=== PATIENT | female | born 1950 | race Caucasian/White ===

== ENCOUNTER 2017-08-14 15:17 | Emergency (ER) | payer OTHER ==
[~2017-08-14] VITALS: Ht 167.6 cm; Wt 68.0 kg
[2017-08-14 16:17] LABS: BASOPHILS ABSOLUTE AUTO 0.04 K/mm3 (0.00-0.23); BASOPHILS PERCENT AUTO 1 % (0-2); EOSINOPHILS ABSOLUTE AUTO 0.39 K/mm3 (0.00-0.68); EOSINOPHILS PERCENT AUTO 6 % (0-6); Hematocrit 37.3 % (33.0-51.0); Hemoglobin 12.3 g/dL (11.5-16.0); IMMATURE GRAN ABSOLUTE AUTO 0.01 K/mm3 (0.00-0.10); IMMATURE GRAN PERCENT AUTO 0 % (0-1); LYMPHOCYTES ABSOLUTE AUTO 1.26 K/mm3 (0.84-5.20); LYMPHOCYTES PERCENT AUTO 21 % (21-46); MONOCYTES ABSOLUTE AUTO 0.44 K/mm3 (0.16-1.47); MONOCYTES PERCENT AUTO 7 % (4-13); Mean Corpuscular HGB 31.1 pg (26.0-34.0); Mean Corpuscular Volume 94 fL (80-100); Mean Platelet Volume 8.9 fL (9.1-12.4); NEUTROPHILS ABSOLUTE AUTO 3.96 K/mm3 (1.96-9.15); NEUTROPHILS PERCENT AUTO 65 % (41-73); Platelet Count 250 K/mm3 (150-400); RDW Standard Deviation 44.7 fL (35.1-46.3); Red Blood Cell Count 3.95 M/mm3 (3.80-5.20)
[2017-08-14 16:21] LABS: Source, Urine Catheter
[2017-08-14 16:25] LABS: Appearance, Urine Hazy (Clear); Bilirubin, Urine Neg (Neg); Blood, Urine Neg (Neg); Color, Urine Yellow (P-Yellow); Glucose Qualitative, Urine Neg (Neg); Ketones, Urine Neg (Neg); Leukocyte Esterase, Urine Neg (Neg); Nitrite, Urine Neg (Neg); Protein, Urine Neg (Neg); Specific Gravity, Urine 1.015 (1.003-1.022); Urobilinogen, Urine NORM (Normal)
[2017-08-14 16:32] LABS: International Normalized Ratio 1.07; Prothrombin Time Results 11.1 Sec (9.7-11.5)
[2017-08-14 16:34] LABS: Amorphous Light (0-Heavy); Squamous Epithelial Cells Few /hpf (Few); Transitional Epithelial Cells Few /hpf (0-Rare)
[2017-08-14 16:35] LABS: Bacteria Not Seen /hpf; Red Blood Cells, Urine 0-2 /hpf (0-2); White Blood Cells, Urine 0-2 /hpf (0-5)
[2017-08-14 16:38] LABS: Alanine Aminotransfer (ALT/SGP 16 U/L (12-78); Albumin, Blood 3.3 g/dL (3.4-5.0); Albumin/Globulin Ratio 1.1 (0.8-1.8); Alk Phos 118 U/L (50-136); Anion Gap 4 mmol/L (6-16); Aspartate Aminotrans (AST/SGOT 14 U/L (12-37); Bilirubin, Total 0.5 mg/dL (0.1-1.0); Blood Urea Nitrogen 11 mg/dL (8-24); CO2, Blood 31 mmol/L (21-32); Calcium, Blood 9.2 mg/dL (8.5-10.1); Chloride, Blood 108 mmol/L (98-108); Creatinine, Blood 0.79 mg/dL (0.40-1.00); Glomerular Filtration Rate >60 (60-); Glucose, Blood 95 mg/dL (70-99); Potassium, Blood 3.9 mmol/L (3.5-5.5); Sodium, Blood 143 mmol/L (136-145); Total Protein, Blood 6.3 g/dL (6.4-8.2)
[2017-08-14] MEDS ORDERED: ESCI10 PO (17:12)
[2017-08-14] MEDS ORDERED: Methimazole5 MG PO (17:12)
== END 2017-08-14 18:30 | disposition short-term general hospital (02) ==
LOC: ER 15:17
PROVIDERS: Physician Assistant
DX: S06.5X9A Traumatic subdural hemorrhage with loss of consciousness of unspecified duration, initial encounter (principal); F03.90 Unspecified dementia, unspecified severity, without behavioral disturbance, psychotic disturbance, mood disturbance, and anxiety; Z79.899 Other long term (current) drug therapy; W18.2XXA Fall in (into) shower or empty bathtub, initial encounter
CPT/HCPCS: 36415; 70450; 80053; 81001; 82947; 85025; 85610; 93005; 93010; 99285

== ENCOUNTER 2018-08-14 09:54 | Inpatient (IN) | payer OTHER ==
[~2018-08-14] VITALS: Ht 170.2 cm; Wt 72.7 kg
[~2018-08-14 09:54] MED LIST: ESCI10 PO; Methimazole5 MG PO
[2018-08-14 10:12] LABS: Hematocrit 41.9 % (33.0-51.0); Hemoglobin 13.1 g/dL (11.5-16.0); Mean Corpuscular HGB 31.3 pg (26.0-34.0); Mean Corpuscular HGB Conc 31.3 g/dL (31.5-36.5); Mean Corpuscular Volume 100 fL (80-100); Mean Platelet Volume 9.3 fL (9.1-12.4); NRBC ABSOLUTE 0.04 K/mm3 (0.00-0.02); NRBC Auto 0.5 /100 WBC (0.0-0.2); Platelet Count 159 K/mm3 (150-400); RDW Coefficient Variation 13.2 % (11.7-14.2); RDW Standard Deviation 48.4 fL (35.1-46.3); Red Blood Cell Count 4.18 M/mm3 (3.80-5.20); White Blood Cell Count 8.59 K/mm3 (4.00-11.30)
[2018-08-14 10:40] LABS: Alanine Aminotransfer (ALT/SGP 765 U/L (12-78); Albumin, Blood 2.9 g/dL (3.4-5.0); Albumin/Globulin Ratio 0.9 (0.8-1.8); Alk Phos 143 U/L (50-136); Anion Gap 15 mmol/L (6-16); Bilirubin, Total 0.4 mg/dL (0.1-1.0); Blood Urea Nitrogen 10 mg/dL (8-24); Bun/Creatinine Ratio 10.5 (12.0-20.0); CO2, Blood 21 mmol/L (21-32); Calcium, Blood 8.9 mg/dL (8.5-10.1); Chloride, Blood 107 mmol/L (98-108); Creatinine, Blood 0.95 mg/dL (0.40-1.00); Globulin, Blood 3.1 g/dL (2.2-4.0); Glomerular Filtration Rate >60 (60-); Glucose, Blood 284 mg/dL (70-99); Potassium, Blood 3.6 mmol/L (3.5-5.5); Sodium, Blood 143 mmol/L (136-145); Troponin I 0.306 ng/mL (0.000-0.040)
[2018-08-14 10:48] LABS: BASOPHILS PERCENT MAN 0 % (0-2); EOSINOPHILS ABSOLUTE MAN 0.08 K/mm3 (0.00-0.68); EOSINOPHILS PERCENT MAN 1 % (0-6); LYMPHOCYTES ABSOLUTE MAN 5.06 K/mm3 (0.84-5.20); LYMPHOCYTES PERCENT MAN 59 % (21-46); METAMYELOCYTE ABSOLUTE MAN 0.17 K/mm3 (0.00-0.00); METAMYELOCYTE PERCENT MAN 2 % (0-0); MONOCYTES ABSOLUTE MAN 0.25 K/mm3 (0.16-1.47); MONOCYTES PERCENT MAN 3 % (4-13); MYELOCYTE ABSOLUTE MAN 0.17 K/mm3 (0.00-0.00); MYELOCYTE PERCENT MAN 2 % (0-0); NEUTROPHILS ABSOLUTE MAN 2.83 K/mm3 (1.96-9.15); SEG NEUTROPHILS PERCENT MAN 33 % (41-73); TOTAL CELLS COUNTED 100
[2018-08-14 10:54] LABS: Base Excess Venous -9.3 mmol/L; Bicarbonate Venous 16.1 mmol/L (24.0-30.0); PCO2 Venous 65.4 mmHg (38-42); PO2 Venous 48.2 mmHg (38-42)
[2018-08-14 11:01] LABS: Aspartate Aminotrans (AST/SGOT 800 U/L (12-37)
[2018-08-14 11:07] LABS: Source, Urine Catheter
[2018-08-14 11:10] LABS: Bilirubin, Urine Neg (Neg); Blood, Urine 5+ (Neg); Glucose Qualitative, Urine 4+ (Neg); Ketones, Urine 1+ (Neg); Leukocyte Esterase, Urine Neg (Neg); Nitrite, Urine Neg (Neg); Protein, Urine 4+ (Neg); Specific Gravity, Urine 1.015 (1.003-1.022); Urobilinogen, Urine NORM (Normal); pH, Urine 6.5 (5.0-8.0)
[2018-08-14 11:30] LABS: Color, Urine Yellow (P-Yellow)
[2018-08-14 11:31] LABS: Appearance, Urine Hazy (Clear)
[2018-08-14 11:33] LABS: Red Blood Cells, Urine 25-50 /hpf (0-2)
[2018-08-14 11:34] LABS: Squamous Epithelial Cells Few /hpf (Few)
[2018-08-14 11:35] LABS: Amorphous Mod (0-Heavy); Bacteria Few /hpf; Transitional Epithelial Cells Few /hpf (0-Rare)
[2018-08-14 11:36] LABS: Granular Casts 0-2 /lpf (0)
[2018-08-14 16:05] LABS: PCO2 Arterial 39.6 mmHg (35-45); PO2 Arterial 75.4 mmHg (80-100); pH Blood Arterial 7.38 (7.35-7.45)
--- NOTE | 2018-08-14 16:22 | NUR ---
1350 PT WAS ADMITTED TO ICU-7 WITH TRAFFIC AND TRANSPORT PLANNER ON SANDRITA. PT IS NONVERBAL AND FOLLOWING NO COMMANDS AT PRESENT. PT HAS A GLAZED LOOK AND STARE AT ANY VISITORS STAFF. PT IS NOT PICKING AT THINK AND BED ALARM IS ON. ADDRESSING CODE STATUS WILL INFORM DR CHAHAL. PT SKIN CLEAR AND INCONT. UPON ARRIVAL TO ICU.
--- NOTE | 2018-08-14 18:09 | NUR ---
8200 AND 1540 AFSANEH GUADARRAMA AND MARCO ANTONIO CALLED AND CONSULTED RE PT CONSULT. PT VS IMPROVING.
--- NOTE | 2018-08-14 18:31 | NUR ---
PT NEURO STATUS STABLE, VS STABLE AND IMPROVING. PT REMAINS NONVERBAL. IN ROOM. PT HAS BEEN TO CT AT 1635 PER ORDER. HEPARIN GTT TO START AT 13UNITS PER PHARMACY AND HOLD BOLUS UNTIL AFTER CT HEAD TONIGHT AT [address] GUADARRAMA. I/O NOTED. NS AT 100ML AND IV ABX INFUSING AND HEPARIN GTT TO START NOW.
--- NOTE | 2018-08-14 23:39 | NUR ---
ASSUMING CARE RECEIVED PT REPORT FROM RADHA ROGER. PT HAS DEMENTIA AND IS NON-VERBAL AT BASELINE. PT IS AWAKE AND TRACKING MOVEMENTS WITH EYES. PT IS NOT FOLLOWING COMMANDS AT THIS TIME. PT IS RECEIVING NS AT 100ML/HR AND HEPARIN AT 13U/KG/HR. RATE CONFIRMED WITH OFF GOING NURSE AT THE TIME OF REPORT. PT HAS MCKEON TEMP PROBE IN PLACE AT THIS TIME, PATENT AND DRAINING TO GRAVITY. PT HR IS IN THE 100-110 RANGE AT THIS TIME. PT BP IS STABLE IN THE 120-130'S. PT LUNG SOUNDS ARE DIMINISHED THROUGHOUT. PT IS ON 6L O2 VIA NC AT THIS TIME. SPO2 IS IN THE MID 90'S. PT TAKEN TO CT FOR CT OF HEAD AT APPROX 2215 AND RETURNED AT APPROX 2230. PT ESCORTED TO CT BY THIS RN AND FOREST EXAMINER, VIA ICU BED. ASSUMING CARE OF PT AT THE TIME OF SHIFT REPORT. WILL CONTINUE TO MONITOR PT.
[2018-08-15 05:21] LABS: BASOPHILS ABSOLUTE AUTO 0.01 K/mm3 (0.00-0.23); BASOPHILS PERCENT AUTO 0 % (0-2); EOSINOPHILS ABSOLUTE AUTO 0.02 K/mm3 (0.00-0.68); EOSINOPHILS PERCENT AUTO 0 % (0-6); Hematocrit 34.4 % (33.0-51.0); Hemoglobin 11.4 g/dL (11.5-16.0); IMMATURE GRAN ABSOLUTE AUTO 0.04 K/mm3 (0.00-0.10); IMMATURE GRAN PERCENT AUTO 0 % (0-1); LYMPHOCYTES PERCENT AUTO 11 % (21-46); MONOCYTES ABSOLUTE AUTO 0.73 K/mm3 (0.16-1.47); MONOCYTES PERCENT AUTO 7 % (4-13); Mean Corpuscular HGB 31.7 pg (26.0-34.0); Mean Corpuscular HGB Conc 33.1 g/dL (31.5-36.5); Mean Platelet Volume 9.4 fL (9.1-12.4); NEUTROPHILS ABSOLUTE AUTO 8.12 K/mm3 (1.96-9.15); NEUTROPHILS PERCENT AUTO 81 % (41-73); Platelet Count 130 K/mm3 (150-400); RDW Coefficient Variation 13.3 % (11.7-14.2); RDW Standard Deviation 46.7 fL (35.1-46.3); White Blood Cell Count 10.02 K/mm3 (4.00-11.30)
[2018-08-15 05:22] LABS: Mean Corpuscular Volume 96 fL (80-100)
[2018-08-15 05:47] LABS: Alanine Aminotransfer (ALT/SGP 567 U/L (12-78); Albumin, Blood 2.6 g/dL (3.4-5.0); Alk Phos 117 U/L (50-136); Anion Gap 3 mmol/L (6-16); Aspartate Aminotrans (AST/SGOT 340 U/L (12-37); Bilirubin, Total 0.6 mg/dL (0.1-1.0); Blood Urea Nitrogen 11 mg/dL (8-24); Bun/Creatinine Ratio 15.8 (12.0-20.0); CO2, Blood 29 mmol/L (21-32); Calcium, Blood 8.3 mg/dL (8.5-10.1); Chloride, Blood 115 mmol/L (98-108); Globulin, Blood 2.6 g/dL (2.2-4.0); Glomerular Filtration Rate >60 (60-); Glucose, Blood 119 mg/dL (70-99); Potassium, Blood 4.3 mmol/L (3.5-5.5); Sodium, Blood 147 mmol/L (136-145); Total Protein, Blood 5.2 g/dL (6.4-8.2)
--- NOTE | 2018-08-15 05:58 | NUR ---
SHIFT SUMAMRY NOTE PT HAS REMAINED AWAKE THROUGH MOST OF THE NIGHT. PT HAS NOT FOLLOWED ANY COMMANDS THROUGH THE NIGHT, BUT IS ABLE TO TRACK MOVEMENTS WITH EYES WELL. PT PUPILS HAVE REMAINED EQUAL ROUND AND REACTIVE THROUGHOUT THE NIGHT. PT CONTINUES TO RECEIVE NS AT 100ML/HR AND HEPARIN AT 13U/KG/HR. HEPARIN RATE HAS REMAINED UNCHANGED THROUGHOUT THE NIGHT. PT REMAINS ON 6L O2 VIA NC AT THIS TIME WITH SPO2 IN THE MID TO HIGH 90'S PT MCKEON TEMP PROBE REMAINS IN PLACE, AND IS PATENT AND DRAINING CLEAR YELLOW URINE AT THIS TIME. PT TEMPERATURE HAS MAINTAINED IN THE LOW 99 RANGE THROUGH THE NIGHT. PT HR HAS REMAINED IN THE LOW 100'S WHILE AWAKE, BUT WILL DECREASE TO THE 90'S WHILE ASLEEP. PT BP HAS MAINTAINED THROUGH THE NIGHT. WILL REPORT OFF TO ONCOMING DAY SHIFT NURSE.
[2018-08-15 06:04] LABS: Troponin I 0.727 ng/mL (0.000-0.040)
--- NOTE | 2018-08-15 09:15 | NUR ---
PT HAS HAD ECHOCARD DONE THIS AM. IN TO VISIT THIS DAY. PT REMIANS NON-VERBAL AND CONT TO HAVE A BLANK STARE W/O ANY INDICATIONS OF FOLLOWING COMMMANDS. PT REMAINS NON-COMBATIVE AND NOT REALLY RESISTING WITH CARE EITHER. PT IS ALSO FEEDING PT AND SHE IS TOLERATING WELL. INDICATED THAT SHE WILL NOT SWALLOW WELL WITH DENTURES IN, BUT DENTURES ARE AT HOME.
--- NOTE | 2018-08-15 10:33 | NUR ---
HEPARIN GTT D/C AND LOVENOX SQ STARTED. REMAINS IN ROOM. VSS. PT REMAINS WAKE WITH NO CLINICAL CHANGE IN STATUS.
--- NOTE | 2018-08-15 16:08 | NUR ---
REPORT CALLED TO SONAM CASPER AND WILL TRANSPORT TO PCU-2 [facility] VIA BED. IS IN ROOM AND AWARE OF PT CURRENT HEALTH STATUS AND CHANGE OF ROOMS. I/O CHARTED.
--- NOTE | 2018-08-15 17:52 | NUR ---
Assumed care of pt at approx 1630 from RADHA Lin. pt transfered to pcu 2 and greeted by pcu weigh and charge worker, jody. vss. pt in no apparent sign of distress at time of transfer. upon assessment, lungs diminished throughout, crackles LEIA. neuro is baseline per pt . pt nonverbal, follows simple commands and has nodded "yes" and "no". pt with strong real estate developer, weak motor function in both upper and lower extremities. pt presents positive for DVT in left leg. upon assessment, LL warm to the touch, not swollen. pt on 5l nc with 02 saturation >90%. pt unable to use call light appropriately and must have frequent checks in. pt denies pain and does not appear with s/sx of pain at this time. will continue to monitor and update as appropriate
[2018-08-16 04:23] LABS: Free Thyroxine 0.85 ng/dL (0.70-1.60)
[2018-08-16 04:26] LABS: Thyroid Stimulating Hormone 1.36 uIU/mL (0.360-4.800)
--- NOTE | 2018-08-16 05:30 | NUR ---
SHIFT SUMMARY PT ALERT, NONVERBAL AT BASELINE, NOT ANSWERING Y/N Q'S. LUNG SOUNDS CLEAR, DIM IN BASES. SPO2 > 90% ON 5L NC TITRATED TO 3L NC THIS SHIFT. PT DESAT MID 80'S D/T PT REMOVAL OF NC W/ QUICK RECOVERY W/ O2 REAPPLICATION MULTIPLE TIMES THIS SHIFT. OTHERWISE VSS. MCKEON CATH PATENT AND DRAINING CLEAR YELLOW URINE. BLE PINK WARM AND DRY, NO SWELLING, NO REDNESS, NOT HOT TO TOUCH. PT IN BED W/ Q2H REPOSITIONING. WILL CONTINUE TO MONITOR AND PROVIDE CARE UNTIL REPORT OFF TO DAY SHIFT RN.
--- NOTE | 2018-08-16 07:56 | NUR ---
Bedside handoff completed. Vital signs taken at this time; pt is awake, non verbal. Don is at the bedside. States he is wondering why the pt is having so many blood clots. Confirmed that Dr. Parra will be seeing the pt today during rounds.
--- NOTE | 2018-08-16 10:28 | NUR ---
MIKE MCMAHON; ATTENDS PLACED ON THE PT.
--- NOTE | 2018-08-16 15:27 | NUR ---
Spiritual care visit conducted. Patient with , Ned present welcomed me. Don openly shared life/family history, the medical history of patient and the current medical issues they are facing. I listened empathically, provided companionship, encouraged self care and normalized their experience. Don responded well and showed signs of an elevated mood.
--- NOTE | 2018-08-16 16:01 | NUR ---
Pt weaned off of oxygen. 93% spo2 on room air at rest at this time.
--- NOTE | 2018-08-16 19:26 | NUR ---
SUMMARY the pt has been at her baseline mentation, according to her . She is alert, but completely non-verbal and does not follow commands. She does track with her eyes, and spontaneously moves her extremities, readily grabbing hold of items and also a cup and sipping her drink. She eats with help. Incontinent of urine in large amounts today. states that this is baseline for her. Oxygen was successfully weaned off today. She has been afebrile, and no dyspnea. Would like to see the pt working with PT/OT to increase her mobility in preparation for discharge to home. Her states that he is her 24 hour caregiver.
[2018-08-17 04:52] LABS: BASOPHILS ABSOLUTE AUTO 0.04 K/mm3 (0.00-0.23); BASOPHILS PERCENT AUTO 1 % (0-2); EOSINOPHILS ABSOLUTE AUTO 0.22 K/mm3 (0.00-0.68); EOSINOPHILS PERCENT AUTO 4 % (0-6); Hematocrit 33.9 % (33.0-51.0); Hemoglobin 11.4 g/dL (11.5-16.0); IMMATURE GRAN ABSOLUTE AUTO 0.02 K/mm3 (0.00-0.10); IMMATURE GRAN PERCENT AUTO 0 % (0-1); LYMPHOCYTES ABSOLUTE AUTO 1.38 K/mm3 (0.84-5.20); LYMPHOCYTES PERCENT AUTO 22 % (21-46); MONOCYTES ABSOLUTE AUTO 0.48 K/mm3 (0.16-1.47); MONOCYTES PERCENT AUTO 8 % (4-13); Mean Corpuscular HGB 31.8 pg (26.0-34.0); Mean Corpuscular HGB Conc 33.6 g/dL (31.5-36.5); Mean Corpuscular Volume 94 fL (80-100); Mean Platelet Volume 9.5 fL (9.1-12.4); NEUTROPHILS PERCENT AUTO 66 % (41-73); Platelet Count 153 K/mm3 (150-400); RDW Coefficient Variation 12.9 % (11.7-14.2); RDW Standard Deviation 44.7 fL (35.1-46.3); Red Blood Cell Count 3.59 M/mm3 (3.80-5.20); White Blood Cell Count 6.34 K/mm3 (4.00-11.30)
[2018-08-17 05:11] LABS: Alanine Aminotransfer (ALT/SGP 282 U/L (12-78); Albumin, Blood 2.7 g/dL (3.4-5.0); Albumin/Globulin Ratio 0.9 (0.8-1.8); Alk Phos 110 U/L (50-136); Anion Gap 4 mmol/L (6-16); Aspartate Aminotrans (AST/SGOT 63 U/L (12-37); Bilirubin, Total 0.7 mg/dL (0.1-1.0); Blood Urea Nitrogen 5 mg/dL (8-24); CO2, Blood 30 mmol/L (21-32); Calcium, Blood 8.7 mg/dL (8.5-10.1); Chloride, Blood 111 mmol/L (98-108); Creatinine, Blood 0.71 mg/dL (0.40-1.00); Globulin, Blood 2.9 g/dL (2.2-4.0); Glomerular Filtration Rate >60 (60-); Glucose, Blood 100 mg/dL (70-99); Potassium, Blood 3.4 mmol/L (3.5-5.5); Sodium, Blood 145 mmol/L (136-145); Total Protein, Blood 5.6 g/dL (6.4-8.2)
--- NOTE | 2018-08-17 06:26 | NUR ---
ASSUMED CARE 1900 FROM RADHA KRAUS. PT IS NON-VERBAL BASELINE; TRACKS WITH EYES; DOES NOT FOLLOW VERBAL COMMANDS BUT WILL LOOK AT WHAT YOU TELL HER; ATTENDS IN PLACE, CHANGED Q 2 HRS; PT ON RA; PT TOLERATED LAB DRAW WITH REASSURANCE; IV SALINE LOCKED; PT HAS STRONG HAND GRASPS AND HOLDS ON TO ITEMS OR STAFF; NO ACUTE CHANGES; CALL LIGHT WITHIN REACH; BED IN LOWEST POSITION; BED ALARM ON; WILL CONTINUE TO ASSESS AND MONITOR UNTIL HANDOFF TO ONCOMING RN.
[2018-08-18 03:54] LABS: BASOPHILS ABSOLUTE AUTO 0.02 K/mm3 (0.00-0.23); BASOPHILS PERCENT AUTO 0 % (0-2); EOSINOPHILS ABSOLUTE AUTO 0.21 K/mm3 (0.00-0.68); EOSINOPHILS PERCENT AUTO 3 % (0-6); Hematocrit 32.6 % (33.0-51.0); Hemoglobin 11.1 g/dL (11.5-16.0); IMMATURE GRAN ABSOLUTE AUTO 0.02 K/mm3 (0.00-0.10); IMMATURE GRAN PERCENT AUTO 0 % (0-1); LYMPHOCYTES ABSOLUTE AUTO 1.33 K/mm3 (0.84-5.20); LYMPHOCYTES PERCENT AUTO 19 % (21-46); MONOCYTES ABSOLUTE AUTO 0.54 K/mm3 (0.16-1.47); MONOCYTES PERCENT AUTO 8 % (4-13); Mean Corpuscular HGB 31.4 pg (26.0-34.0); Mean Corpuscular Volume 92 fL (80-100); Mean Platelet Volume 9.3 fL (9.1-12.4); NEUTROPHILS ABSOLUTE AUTO 4.72 K/mm3 (1.96-9.15); NEUTROPHILS PERCENT AUTO 69 % (41-73); Platelet Count 175 K/mm3 (150-400); RDW Coefficient Variation 13.2 % (11.7-14.2); RDW Standard Deviation 43.8 fL (35.1-46.3); Red Blood Cell Count 3.53 M/mm3 (3.80-5.20); White Blood Cell Count 6.84 K/mm3 (4.00-11.30)
[2018-08-18 04:15] LABS: Alanine Aminotransfer (ALT/SGP 212 U/L (12-78); Albumin, Blood 2.6 g/dL (3.4-5.0); Alk Phos 113 U/L (50-136); Anion Gap 4 mmol/L (6-16); Aspartate Aminotrans (AST/SGOT 45 U/L (12-37); Bilirubin, Total 0.6 mg/dL (0.1-1.0); Blood Urea Nitrogen 7 mg/dL (8-24); Bun/Creatinine Ratio 10.8 (12.0-20.0); CO2, Blood 29 mmol/L (21-32); Calcium, Blood 8.8 mg/dL (8.5-10.1); Chloride, Blood 112 mmol/L (98-108); Creatinine, Blood 0.65 mg/dL (0.40-1.00); Globulin, Blood 2.7 g/dL (2.2-4.0); Glomerular Filtration Rate >60 (60-); Glucose, Blood 107 mg/dL (70-99); Potassium, Blood 3.4 mmol/L (3.5-5.5); Sodium, Blood 145 mmol/L (136-145); Total Protein, Blood 5.3 g/dL (6.4-8.2)
--- NOTE | 2018-08-18 05:44 | NUR ---
SHIFT SUMMARY PT SLEEPING IN ROOM COMFORTABLY AT THIS TIME. NO ACUTE CHANGES T/O SHIFT. RESP EVEN UNLABORED ON RA. PT HAD SEVERAL INCONTINENT VOIDS INTO ATTENDS T/O NIGHT. PT DOES NOT APPEAR TO HAVE ANY PHYSICAL SIGNS OF PAIN AT THIS TIME. SLEEPING COMFORTABLY. CALL LIGHT IS IN REACH. BED ALARM IS ON.
[2018-08-18] MEDS ORDERED: XARELTO15 MG PO (12:18)
[2018-08-18] MEDS ORDERED: AZIT500 PO (12:19)
== END 2018-08-18 15:19 | disposition home health service (06) | DRG 871 ==
LOC: ER 09:54 → ICUW 12:16 → ICUE 12:16 → PCU 13:10 → ICUE 13:10 → PCU 08-15 16:23
PROVIDERS: Emergency Medicine; Internal Medicine Endocrinology, Diabetes & Metabolism; ADMIT Student in an Organized Health Care Education/Training Program
PROC: 3E053XZ Introduction of Vasopressor into Peripheral Artery, Percutaneous Approach (ICD-10-PCS; principal; 2018-08-14)
DX: A41.9 Sepsis, unspecified organism (principal); R65.21 Severe sepsis with septic shock; J96.01 Acute respiratory failure with hypoxia; I26.09 Other pulmonary embolism with acute cor pulmonale; J18.1 Lobar pneumonia, unspecified organism; I46.9 Cardiac arrest, cause unspecified; I82.4Z2 Acute embolism and thrombosis of unspecified deep veins of left distal lower extremity; E05.10 Thyrotoxicosis with toxic single thyroid nodule without thyrotoxic crisis or storm; G31.09 Other frontotemporal neurocognitive disorder; F02.80 Dementia in other diseases classified elsewhere, unspecified severity, without behavioral disturbance, psychotic disturbance, mood disturbance, and anxiety; K75.9 Inflammatory liver disease, unspecified; Z66 Do not resuscitate
CPT/HCPCS: 36415; 36600; 51702; 70450; 71045; 71260; 74160; 80053; 81001; 82803; 82947; 83605; 83880; 84145; 84439; 84443; 84484; 85025; 85730; 87040; 93005; 93010; 93306; 93970; 96361-59; 96365-59; 96375-59; 97116; 97162; 97530; 99285-25; J0456; J0696; J1644; J1650; J2405; J7030; J7040; J7050; Q9967

== ENCOUNTER 2019-04-27 15:33 | Emergency (ER) | payer OTHER ==
[~2019-04-27] VITALS: Ht 170.2 cm; Wt 61.2 kg
[~2019-04-27 15:33] MED LIST changes: +AZIT500 PO; +XARELTO15 MG PO
[2019-04-27] MEDS ORDERED: XARELTO15 M1 PO (15:51)
[2019-04-27 16:20] LABS: BASOPHILS ABSOLUTE AUTO 0.03 K/mm3 (0.00-0.23); BASOPHILS PERCENT AUTO 0 % (0-2); EOSINOPHILS PERCENT AUTO 1 % (0-6); Hematocrit 42.4 % (33.0-51.0); Hemoglobin 14.1 g/dL (11.5-16.0); IMMATURE GRAN ABSOLUTE AUTO 0.02 K/mm3 (0.00-0.10); IMMATURE GRAN PERCENT AUTO 0 % (0-1); LYMPHOCYTES ABSOLUTE AUTO 2.19 K/mm3 (0.84-5.20); LYMPHOCYTES PERCENT AUTO 24 % (21-46); MONOCYTES ABSOLUTE AUTO 0.62 K/mm3 (0.16-1.47); MONOCYTES PERCENT AUTO 7 % (4-13); Mean Corpuscular HGB 31.8 pg (26.0-34.0); Mean Corpuscular HGB Conc 33.3 g/dL (31.5-36.5); Mean Corpuscular Volume 96 fL (80-100); Mean Platelet Volume 9.4 fL (9.1-12.4); NEUTROPHILS ABSOLUTE AUTO 6.25 K/mm3 (1.96-9.15); NEUTROPHILS PERCENT AUTO 68 % (41-73); Platelet Count 281 K/mm3 (150-400); RDW Coefficient Variation 12.2 % (11.7-14.2); RDW Standard Deviation 42.3 fL (35.1-46.3); Red Blood Cell Count 4.43 M/mm3 (3.80-5.20); White Blood Cell Count 9.21 K/mm3 (4.00-11.30)
[2019-04-27 16:27] LABS: Alanine Aminotransfer (ALT/SGP 17 U/L (12-78); Albumin, Blood 3.2 g/dL (3.4-5.0); Alk Phos 86 U/L (50-136); Anion Gap 5 mmol/L (6-16); Aspartate Aminotrans (AST/SGOT 11 U/L (12-37); Bilirubin, Total 0.6 mg/dL (0.1-1.0); Blood Urea Nitrogen 8 mg/dL (8-24); CO2, Blood 29 mmol/L (21-32); Calcium, Blood 9.2 mg/dL (8.5-10.1); Chloride, Blood 105 mmol/L (98-108); Creatinine, Blood 0.73 mg/dL (0.40-1.00); Globulin, Blood 3.3 g/dL (2.2-4.0); Glomerular Filtration Rate >60 (60-); Glucose, Blood 94 mg/dL (70-99); Potassium, Blood 3.8 mmol/L (3.5-5.5); Sodium, Blood 139 mmol/L (136-145); Total Protein, Blood 6.5 g/dL (6.4-8.2)
[2019-04-27 17:43] LABS: Source, Urine Clean Catch
[2019-04-27 17:47] LABS: Appearance, Urine Cloudy (Clear); Bilirubin, Urine Neg (Neg); Blood, Urine 1+ (Neg); Color, Urine Yellow (P-Yellow); Glucose Qualitative, Urine Neg (Neg); Ketones, Urine Neg (Neg); Leukocyte Esterase, Urine 1+ (Neg); Nitrite, Urine Pos (Neg); Protein, Urine 1+ (Neg); Specific Gravity, Urine 1.025 (1.003-1.022); Urobilinogen, Urine NORM (Normal)
[2019-04-27 17:56] LABS: Amorphous Mod (0-Heavy); Bacteria Mod /hpf; Squamous Epithelial Cells Few /hpf (Few)
[2019-04-27] MEDS ORDERED: Cephalexin250 MG/5 M PO (17:58)
== END 2019-04-27 18:25 | disposition home or self-care (01) ==
LOC: ER 15:33
PROVIDERS: Emergency Medicine
DX: N39.0 Urinary tract infection, site not specified (principal); H10.9 Unspecified conjunctivitis; Z86.711 Personal history of pulmonary embolism; Z86.718 Personal history of other venous thrombosis and embolism; Z87.01 Personal history of pneumonia (recurrent); Z79.899 Other long term (current) drug therapy
CPT/HCPCS: 80053; 81001; 82947; 84484; 85025; 85730; 87077; 87086; 87186; 93005; 93010; 99284-25; P9612

== ENCOUNTER 2020-10-11 04:46 | Day surgery (SDC) | payer OTHER ==
[~2020-10-11 04:46] MED LIST changes: +Cephalexin250 MG/5 M PO; +XARELTO15 M1 PO
== END 2020-10-11 23:54 | disposition home or self-care (01) ==
LOC: WOUND 04:46
DX: L89.154 Pressure ulcer of sacral region, stage 4 (principal); M06.9 Rheumatoid arthritis, unspecified; F02.80 Dementia in other diseases classified elsewhere, unspecified severity, without behavioral disturbance, psychotic disturbance, mood disturbance, and anxiety
CPT/HCPCS: 87071; 87075; 87205; A9270; G0463

== ENCOUNTER 2020-10-16 04:34 | Day surgery (SDC) | payer OTHER | END 2020-10-16 23:07 | disposition home or self-care (01) | LOC: WOUND 04:34 | DX: L89.154 Pressure ulcer of sacral region, stage 4 (principal); Z74.09 Other reduced mobility; F02.80 Dementia in other diseases classified elsewhere, unspecified severity, without behavioral disturbance, psychotic disturbance, mood disturbance, and anxiety | CPT/HCPCS: A9270 ==

== ENCOUNTER 2020-10-22 04:13 | Day surgery (SDC) | payer OTHER | END 2020-10-22 23:32 | disposition home or self-care (01) | LOC: WOUND 04:13 | DX: L89.154 Pressure ulcer of sacral region, stage 4 (principal); F02.80 Dementia in other diseases classified elsewhere, unspecified severity, without behavioral disturbance, psychotic disturbance, mood disturbance, and anxiety; Z74.09 Other reduced mobility | CPT/HCPCS: A9270; G0463 ==

== ENCOUNTER 2020-10-26 16:43 | Inpatient (IN) | payer OTHER ==
[~2020-10-26] VITALS: Ht 162.6 cm; Wt 45.6 kg
[2020-10-26 17:55] LABS: Source, Urine Catheter
[2020-10-26 18:04] LABS: BASOPHILS ABSOLUTE AUTO 0.04 K/mm3 (0.00-0.23); BASOPHILS PERCENT AUTO 0 % (0-2); EOSINOPHILS ABSOLUTE AUTO 0.01 K/mm3 (0.00-0.68); EOSINOPHILS PERCENT AUTO 0 % (0-6); Hemoglobin 13.3 g/dL (11.5-16.0); IMMATURE GRAN ABSOLUTE AUTO 0.04 K/mm3 (0.00-0.10); IMMATURE GRAN PERCENT AUTO 0 % (0-1); LYMPHOCYTES ABSOLUTE AUTO 1.14 K/mm3 (0.84-5.20); LYMPHOCYTES PERCENT AUTO 13 % (21-46); MONOCYTES ABSOLUTE AUTO 0.47 K/mm3 (0.16-1.47); MONOCYTES PERCENT AUTO 5 % (4-13); Mean Corpuscular HGB 31.1 pg (26.0-34.0); Mean Corpuscular HGB Conc 30.2 g/dL (31.5-36.5); Mean Corpuscular Volume 103 fL (80-100); Mean Platelet Volume 10.3 fL (9.1-12.4); NEUTROPHILS ABSOLUTE AUTO 7.37 K/mm3 (1.96-9.15); NEUTROPHILS PERCENT AUTO 81 % (41-73); Platelet Count 232 K/mm3 (150-400); RDW Coefficient Variation 14.1 % (11.7-14.2); Red Blood Cell Count 4.28 M/mm3 (3.80-5.20); White Blood Cell Count 9.07 K/mm3 (4.00-11.30)
[2020-10-26 18:06] LABS: Bilirubin, Urine Neg (Neg); Blood, Urine 3+ (Neg); Color, Urine Yellow (P-Yellow); Glucose Qualitative, Urine Neg (Neg); Ketones, Urine Neg (Neg); Leukocyte Esterase, Urine 1+ (Neg); Nitrite, Urine Pos (Neg); Protein, Urine 2+ (Neg); Specific Gravity, Urine 1.025 (1.003-1.022); Urobilinogen, Urine NORM (Normal)
[2020-10-26 18:16] LABS: Appearance, Urine Hazy (Clear)
[2020-10-26 18:17] LABS: Hyaline Casts 0-2 /lpf (0-2)
[2020-10-26 18:18] LABS: Red Blood Cells, Urine 0-2 /hpf (0-2)
[2020-10-26 18:19] LABS: Bacteria Many /hpf; Squamous Epithelial Cells Few /hpf (Few)
[2020-10-26 18:28] LABS: Thyroxine (T4) 8.4 ug/dL (4.8-13.9)
[2020-10-26 18:32] LABS: Thyroid Stimulating Hormone 0.055 uIU/mL (0.360-4.800)
[2020-10-26 18:43] LABS: Alanine Aminotransfer (ALT/SGP 80 U/L (12-78); Albumin, Blood 2.7 g/dL (3.4-5.0); Albumin/Globulin Ratio 0.8 (0.8-1.8); Alk Phos 93 U/L (50-136); Anion Gap 2 mmol/L (6-16); Aspartate Aminotrans (AST/SGOT 45 U/L (12-37); Bilirubin, Total 0.6 mg/dL (0.1-1.0); Blood Urea Nitrogen 32 mg/dL (8-24); Bun/Creatinine Ratio 46.4 (12.0-20.0); CO2, Blood 29 mmol/L (21-32); Calcium, Blood 8.9 mg/dL (8.5-10.1); Chloride, Blood 131 mmol/L (98-108); Creatinine, Blood 0.69 mg/dL (0.40-1.00); Globulin, Blood 3.4 g/dL (2.2-4.0); Glomerular Filtration Rate >60 (60-); Glucose, Blood 110 mg/dL (70-99); Potassium, Blood 3.7 mmol/L (3.5-5.5); Sodium, Blood 162 mmol/L (136-145); Total Protein, Blood 6.1 g/dL (6.4-8.2)
[2020-10-26 19:00] LABS: Calcium, Ionized (POC) 1.17 mmol/L (1.10-1.46); Chloride (POC) 126 mmol/L (98-108); Creatinine (POC) 0.6 mg/dL (0.6-1.0); Glucose (ISTAT POC) 104 mg/dL (70-99); Hemoglobin (POC) 11.6 g/dL (12.0-16.0); Potassium (POC) 3.5 mmol/L (3.5-5.5); Sodium (POC) 162 mmol/L (135-148); Total CO2 (POC) 26 mmol/L (21-32)
[2020-10-26 23:48] LABS: Free Thyroxine 0.95 ng/dL (0.70-1.60)
[2020-10-26 23:51] LABS: Anion Gap 5 mmol/L (6-16); Blood Urea Nitrogen 28 mg/dL (8-24); Bun/Creatinine Ratio 53.1 (12.0-20.0); CO2, Blood 28 mmol/L (21-32); Calcium, Blood 8.5 mg/dL (8.5-10.1); Chloride, Blood 129 mmol/L (98-108); Creatinine, Blood 0.53 mg/dL (0.40-1.00); Glomerular Filtration Rate >60 (60-); Glucose, Blood 112 mg/dL (70-99); Potassium, Blood 3.3 mmol/L (3.5-5.5); Sodium, Blood 162 mmol/L (136-145)
[2020-10-27 04:38] LABS: BASOPHILS ABSOLUTE AUTO 0.05 K/mm3 (0.00-0.23); BASOPHILS PERCENT AUTO 1 % (0-2); EOSINOPHILS ABSOLUTE AUTO 0.08 K/mm3 (0.00-0.68); EOSINOPHILS PERCENT AUTO 1 % (0-6); Hematocrit 39.8 % (33.0-51.0); Hemoglobin 12.1 g/dL (11.5-16.0); IMMATURE GRAN ABSOLUTE AUTO 0.02 K/mm3 (0.00-0.10); IMMATURE GRAN PERCENT AUTO 0 % (0-1); LYMPHOCYTES ABSOLUTE AUTO 0.94 K/mm3 (0.84-5.20); LYMPHOCYTES PERCENT AUTO 11 % (21-46); MONOCYTES ABSOLUTE AUTO 0.45 K/mm3 (0.16-1.47); MONOCYTES PERCENT AUTO 5 % (4-13); Mean Corpuscular HGB 30.4 pg (26.0-34.0); Mean Corpuscular HGB Conc 30.4 g/dL (31.5-36.5); Mean Corpuscular Volume 100 fL (80-100); Mean Platelet Volume 10.4 fL (9.1-12.4); NEUTROPHILS ABSOLUTE AUTO 7.15 K/mm3 (1.96-9.15); NEUTROPHILS PERCENT AUTO 82 % (41-73); Platelet Count 210 K/mm3 (150-400); RDW Coefficient Variation 13.9 % (11.7-14.2); RDW Standard Deviation 50.4 fL (35.1-46.3); Red Blood Cell Count 3.98 M/mm3 (3.80-5.20); White Blood Cell Count 8.69 K/mm3 (4.00-11.30)
[2020-10-27 04:59] LABS: Alanine Aminotransfer (ALT/SGP 74 U/L (12-78); Albumin, Blood 2.4 g/dL (3.4-5.0); Albumin/Globulin Ratio 0.8 (0.8-1.8); Alk Phos 77 U/L (50-136); Anion Gap 4 mmol/L (6-16); Aspartate Aminotrans (AST/SGOT 36 U/L (12-37); Bilirubin, Total 0.5 mg/dL (0.1-1.0); Blood Urea Nitrogen 28 mg/dL (8-24); Bun/Creatinine Ratio 57.5 (12.0-20.0); CO2, Blood 26 mmol/L (21-32); Calcium, Blood 8.6 mg/dL (8.5-10.1); Chloride, Blood 128 mmol/L (98-108); Creatinine, Blood 0.49 mg/dL (0.40-1.00); Glomerular Filtration Rate >60 (60-); Glucose, Blood 137 mg/dL (70-99); Potassium, Blood 3.4 mmol/L (3.5-5.5); Sodium, Blood 158 mmol/L (136-145); Total Protein, Blood 5.4 g/dL (6.4-8.2)
--- NOTE | 2020-10-27 07:46 | NUR ---
CAMPUS RECRUITING COORDINATOR SUMMARY PT NEW ADMIT ARRIVED ON FLOOR AT 2121. OBTAINED MEDICAL INFORMATION FROM . PT IS NON-VERBAL AT BASELINE. PT HAS NOT BEEN ABLE TO ANSWER QUESTIONS WITH NODDING OR SHAKING HEAD. PUPILS ARE NOT REACTIVE TO LIGHT. PT'S DENIES PT HAS HX OF STROKE. EXTREMITIES ARE STIFF. PT ARRIVED WITH PRESSURE ULCER STAGE 4 TO 5. WOUND CLEANSED WITH WOUND SPRAY. THIS RN APPLIED WET TO DRY PACKING USING KERLEX, COVERED WITH 4X4 GAUZE WELL MEPLEX ON TOP. VSS. Q2 REPOSITIONING PROVIDED. CALL LIGHT WITHIN REACH, BED ALARM ON. REPORT GIVEN TO ONCOMING RN.
[2020-10-27 12:07] LABS: Anion Gap 5 mmol/L (6-16); Blood Urea Nitrogen 25 mg/dL (8-24); Bun/Creatinine Ratio 42.4 (12.0-20.0); CO2, Blood 29 mmol/L (21-32); Calcium, Blood 8.9 mg/dL (8.5-10.1); Chloride, Blood 124 mmol/L (98-108); Creatinine, Blood 0.59 mg/dL (0.40-1.00); Glomerular Filtration Rate >60 (60-); Glucose, Blood 107 mg/dL (70-99); Potassium, Blood 3.8 mmol/L (3.5-5.5); Sodium, Blood 158 mmol/L (136-145)
[2020-10-27 17:45] LABS: Anion Gap 4 mmol/L (6-16); Blood Urea Nitrogen 22 mg/dL (8-24); Bun/Creatinine Ratio 36.9 (12.0-20.0); CO2, Blood 27 mmol/L (21-32); Chloride, Blood 123 mmol/L (98-108); Glomerular Filtration Rate >60 (60-); Glucose, Blood 117 mg/dL (70-99); Potassium, Blood 4.2 mmol/L (3.5-5.5); Sodium, Blood 154 mmol/L (136-145)
--- NOTE | 2020-10-27 18:17 | NUR ---
SHIFT SUMMARY UNABLE TO ASSESS PATIENT ORIENTATION D/T NON VERBAL COMMUNICATION AT BASELINE. 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 PT HAS VERY STIFF LIMBS AND CONTRACTED BUE, WITH VERY BONY PROMINENCES. REPOSITIONING Q2 HOURS AND FLOATING WITH PILLOWS. PT DOES NOT FOLLOW DIRECTION/INSTRUCTION. PT CAME IN WITH DEEP SACRAL ULCER, PICS IN CHART. WOUND CARE ORDERS PLACED BASED ON OUTPATIENT WOUND CARE ORDERS. SACRAL DRESSING CHANGED PER ORDERS TODAY. PT ON TELE, RUNNING AT SR WITH PVC 88. PT HAS SPEECH EVAL PENDING. PT ON PUREE DIET, BUT EATS POORLY. , BRAD, IN FOR VISIT TODAY, AND UPDATED ON PLAN OF CARE. DR ASKED TO CALL WITH INFO ON PLAN. BLOOD CULTURES PENDING. PT HAS DEXTROSE 5% FLUIDS RUNNING AT 125ML/HR. PT CURRENTLY SITTING IN BED WITH HAND I BLOCKER FEEDING DINNER. PT APPEARS CONTENT. VITALS REVIEWED. CALL LIGHT IN REACH.
--- NOTE | 2020-10-28 00:05 | NUR ---
10/27/202036 IV LFA 18G D5% IVF AT 125/HR, RUNNING WELL, SITE WNL.
--- NOTE | 2020-10-28 00:11 | NUR ---
10/27/202036 PT LYING IN BED, ON RA, DOES NOT APPEAR TO BE IN ANY DISTRESS, NO MOANING OR GRIMACING, NO APPARENT SOB. DRESSING ON SACRUM C/D/I. TELE NSR 77.
--- NOTE | 2020-10-28 04:00 | NUR ---
10/27/20 2200 PT LYING IN BED, EYES CLOSED, APPEARS TO BE RESTING. BREATHING IS EVEN, UNLABORED. NO APPARENT SIGNS OF DISTRESS. CALL LIGHT IS IN REACH. 10/28/20 0000 PT LYING IN BED, EYES CLOSED, APPEARS TO BE RESTING. BREATHING IS EVEN, UNLABORED. NO APPARENT SIGNS OF DISTRESS. CALL LIGHT IS IN REACH.
--- NOTE | 2020-10-28 04:02 | NUR ---
0200 PT LYING IN BED, EYES CLOSED, APPEARS TO BE RESTING. BREATHING IS EVEN, UNLABORED. NO APPARENT SIGNS OF DISTRESS. CALL LIGHT IS IN REACH.
--- NOTE | 2020-10-28 04:02 | NUR ---
PT LYING IN BED, EYES CLOSED, APPEARS TO BE RESTING. BREATHING IS EVEN, UNLABORED. NO APPARENT SIGNS OF DISTRESS. CALL LIGHT IS IN REACH.
--- NOTE | 2020-10-28 04:38 | NUR ---
PT IS NONVERBAL, DOES NOT REALLY WAKE UP OR OPEN HER EYES BUT WILL TAKE BITES OF FOOD WHEN A SPOONFUL IS PUT BY HER MOUTH, AND SHE WILL SQUEEZE YOUR FINGERS OR HOLD YOUR HAND IF YOU PUT THEM IN HER HAND. ON RA. PT HAS WOUND ON COCCYX WITH DRESSING THAT IS C/D/I. TELE NSR. BS WAS 139. SHE DID NOT APPEAR TO BE IN ANY DISTRESS FOR THIS SHIFT.
[2020-10-28 06:48] LABS: Anion Gap 5 mmol/L (6-16); Blood Urea Nitrogen 19 mg/dL (8-24); Bun/Creatinine Ratio 35.6 (12.0-20.0); CO2, Blood 27 mmol/L (21-32); Calcium, Blood 8.6 mg/dL (8.5-10.1); Chloride, Blood 116 mmol/L (98-108); Creatinine, Blood 0.53 mg/dL (0.40-1.00); Glomerular Filtration Rate >60 (60-); Glucose, Blood 130 mg/dL (70-99); Potassium, Blood 3.6 mmol/L (3.5-5.5); Sodium, Blood 148 mmol/L (136-145)
--- NOTE | 2020-10-28 07:38 | NUR ---
PT LYING IN BED, AWAKE, NO APPARENT SIGNS OF DISTRESS. CALL LIGHT IS IN REACH. BED ALARM IS ON. NO OTHER CHANGES THIS SHIFT.
--- NOTE | 2020-10-28 10:39 | NUR ---
Pt awake with eyes open, nonverbal at baseline. Pt takes medications this AM crushed in applesauce, IV antibiotic infusing.
--- NOTE | 2020-10-28 15:30 | NUR ---
Initial [facility] visit - Met pt's at the bedside. He is clearly very supportive and caring with pt and tearful at times talking of their 50 years together. He has been pt's sole caregiver outside of [facility] coming 1-2 times per week for wound care and his brother loaning them a vehicle he can transport his in to the wound clinic once a week. He appears thin and very fatigued. He is verbalizing and demonstrating cg fatigue with the [facility] care and frequently less than 6 hours sleep a night. He spends 1-2 hours getting pt to take bites at meal time. Please see ST's thorough assessment for full eval on pt's inability to take in adequate nutrition at this late state of pt's severe dementia. Pt awake, alert, nonverbal, wide eyed staring t/o my lengthy visit. She made numerous attempts at putting straw in mouth but never successfully sipped from it. She had tongue protruding most of time. She does not appear agitated but slightly anxious. She does not appear to be in pain. I reviewed nonverbal indicators of pain with and he stated those are the things he looks for and recognizes at home when he thinks she is hurting. We reviewed goals of care, code status, hospice vs home josué vs placement. Hiram does not want his to feel abandoned and wants to cont to care for her at home if possible. He was reluctant to let HH in his home because he is embarrased about the condition and overstuffed nature due to his being a hoarder "for decades" even before her dementia developed. He was tearful about this and stated, "I had to swallow my pride to let HH in but they have been great". I encouraged him to know that the HH and Hospice staff would not federal judge him because of the condition of the house and are only their to support him and his in her care. At this time he requests his be DNR status and we completed a POLST at his request. He would still want infections treated and for her to return the hospital "if it was needed". We agreed to talk further about this tomorrow after he reviewed some materials I gave him on advanced care planning and considering comfort care. He does not want any agressive intervention that would not vastly improve her quality of life. He would like to complete a POLST for himself as he also wishes to be a DNR but he does not have a PCP. I will discuss with EFM Drs who care for Pt. POLST discussed with Dr and left for signature. VO obtained and entered for DNR status. Hospice care, services and coordination of dc plan discussed with pt's extensively. He is appreciative of the information and conversation today. He visits every day during visiting hours and after I returned with Blank POLST for him and reading materials we agreed to meet again tomorrow afternoon to discuss his wishes for Avis's care further. He states they do not have medicaid and he does not have the resources to pay for LTC in a [place] and is not at all sure he would want that, even if he did have funds for that. He would like their son's input. Son Joseph lives in [place] and is coming for a visit soon. They are in contact by phone regularly. Son has not seen his mom for a number of years. RN updated on visit and change in code status to DNR.
--- NOTE | 2020-10-28 18:03 | NUR ---
Shift Summary: Pt remained comfortable today, no s/s of distress noted. Pt's was at bedside much of the afternoon. POLST form was filled out with Palliative Care, needs physician's signature.
--- NOTE | 2020-10-29 03:26 | NUR ---
GI: PATIEMMANINDER WAS FOUND WITH EMESIS ON HER GOWNED AND BED. AFTER LINEN CH[employer] AND [employer] CARTE PATIENT VOMITED AGAIN, A LARGE AMT. OF BROWM LIQUID. VSS, 02 SAT IS 97-99% ON RA. NO CHANGES IN BREATH SOUNDS, STILL DIMINISHED. HOB IS UP, ZOFRAN WAS GIVEN, BED ALARM ON.
[2020-10-29 05:02] LABS: BASOPHILS ABSOLUTE AUTO 0.02 K/mm3 (0.00-0.23); BASOPHILS PERCENT AUTO 0 % (0-2); EOSINOPHILS ABSOLUTE AUTO 0.01 K/mm3 (0.00-0.68); EOSINOPHILS PERCENT AUTO 0 % (0-6); Hematocrit 39.9 % (33.0-51.0); Hemoglobin 13.3 g/dL (11.5-16.0); IMMATURE GRAN ABSOLUTE AUTO 0.08 K/mm3 (0.00-0.10); IMMATURE GRAN PERCENT AUTO 1 % (0-1); LYMPHOCYTES ABSOLUTE AUTO 0.52 K/mm3 (0.84-5.20); LYMPHOCYTES PERCENT AUTO 3 % (21-46); MONOCYTES ABSOLUTE AUTO 0.56 K/mm3 (0.16-1.47); MONOCYTES PERCENT AUTO 4 % (4-13); Mean Corpuscular HGB 31.2 pg (26.0-34.0); Mean Corpuscular HGB Conc 33.3 g/dL (31.5-36.5); NEUTROPHILS PERCENT AUTO 93 % (41-73); RDW Coefficient Variation 13.3 % (11.7-14.2); RDW Standard Deviation 45.2 fL (35.1-46.3); Red Blood Cell Count 4.26 M/mm3 (3.80-5.20); White Blood Cell Count 15.99 K/mm3 (4.00-11.30)
[2020-10-29 05:04] LABS: Mean Corpuscular Volume 94 fL (80-100); Mean Platelet Volume 11.2 fL (9.1-12.4); Platelet Count 117 K/mm3 (150-400)
[2020-10-29 05:13] LABS: Anion Gap 6 mmol/L (6-16); Blood Urea Nitrogen 12 mg/dL (8-24); Bun/Creatinine Ratio 24.5 (12.0-20.0); CO2, Blood 27 mmol/L (21-32); Calcium, Blood 8.4 mg/dL (8.5-10.1); Chloride, Blood 111 mmol/L (98-108); Creatinine, Blood 0.49 mg/dL (0.40-1.00); Glomerular Filtration Rate >60 (60-); Glucose, Blood 188 mg/dL (70-99); Potassium, Blood 3.4 mmol/L (3.5-5.5); Sodium, Blood 144 mmol/L (136-145)
--- NOTE | 2020-10-29 05:23 | NUR ---
SHIFTS SUMMARY: PATIENT HAS BEEN UNABLE TO TOLERATE ANY PO INTAKE. ONLY STUCK TONGUE OUT AND WOULD NOT OR WAS UNABLE TO SWALLOW. DR DURAND WAS NOTIFIED OF EMESIS AND POSSIBLE ASPIRATION WITH NO CHANGE IN CONDITION OR RESPIRATORY STATUS. NO NEW ORDERS, CONTIUE TO MONITOR.
--- NOTE | 2020-10-29 17:26 | NUR ---
Summary of multiple visits and case conferences with pt's RN, , PARAM-CM, , son/by phone, [employer] Manager and [facility]. After lengthy conversations with pt's and after he and I both spoke with pt's son, Joseph in [place], requests discharge home with [facility] and start of comfort care while pt remains hospitalized. He is agreeable to completing the current IV nutrition and IV fluids hanging but does not want any IV restarts, NG or g-tube feedings. He and his brother will start clearing space for the set up of a hospital bed in the home. Pt's RN, , PARAM CM, [employer] Manager and [facility] updated. VO for comfort care and hospice obtained and entered. [facility] does not have availability until Wednesday currently but will start setting up equipment in the home with the . 's contact information provided. Theresa of [facility] to complete Hospice referral and send necessary information when able. Pt is more subdued today and less energetic. She remains awake and watchful. She cont to look comfortable and is not exhibiting nonverbal indicators of pain, anxiety or agitation. and son both tearful during my conversations with them. I answered son's questions by phone after he and his dad had spoken privately and decided on no artificial nutrition and hospice care in the home. My number was given to both for further questions or concerns r/t plan and goals of care.
--- NOTE | 2020-10-29 17:46 | NUR ---
ADMIT: 10/26/20 DISCHARGE: DX: UTI, AMS, Hypernatremia CC: kwilcox NIXON CALL: RESIDENCE: Home with spouse CAREGIVER: Hiram Lomeli, Spouse / Partner, Joseph Lomeli, Child, DX: Acute Resp. failure, cerebral atrophy, DVT, Pulm. Embolism, Dementia DME: 4-wheeled walker, compression stockings, wound supplies CCM: none HOME HEALTH: [facility]- 09/17/20 SUMMARY: 10/29/20- per Dr. Bonds, he is going to schedule a family meeting about care goals for the pt. Yodit with palliative care called and stated that she spoke with the and he would like to put pt on hospice care with [facility] and take her home. He was going to go home today and clear space for a hospital bed, bed side table and other equipment he may need. Will work with both palliative care and pt's and [facility] to come up with a d/c plan for the pt tomorrow. -joaquín
--- NOTE | 2020-10-29 18:07 | NUR ---
SHIFT SUMMARY PT ON COMFORT MEASURES ORDERED. PT APPEARS CALM AND COMFORTABLE T/O SHIFT. POOR PO INTAKE, PT IS CONFUSED, NONVERBAL, PT APPEARS AWAKE AND WATCHFUL T/O SHIFT. NO S/S OF ANY PAIN OR ANY DISCOMFORT NOTED. CONTINUES ON IV CLINIMIX AND LIPIDS UNTIL DONE. PATIENT'S AT BEDSIDE THIS SHIFT.
--- NOTE | 2020-10-29 18:11 | NUR ---
Spiritual care note: I met with spouse, Sacha, at bedside. He spoke with great love and devotion about his marylu . He was often tearful, but appeared to benefit from emotional processing. Facilitated reminising and offered gentle trauma counsellor. Sacha was struggling to come to terms with pt's poor prognosis. He told me that when Nivia was diagnosed with dementia, "the doctor told me it wasn't the kind of dementia people from." Pt appeared comfortable. She did not respond to me, but stared blankly. Pt and family non-pentecostal. Spouse declined prayer. I will remain available.
--- NOTE | 2020-10-29 21:03 | NUR ---
COMFORT: PATIENT JUST VOMITED SPONTANIOUSLY AFTER T&P AND PERSONAL CARE. ZOFRAN IS GIVEN.
--- NOTE | 2020-10-29 23:43 | NUR ---
COMFORT: PATIENT APPEARS TO HAVE GOOD EFFECT FROM ZOFRAN. NO FURTHER VOMITING WITH T&P. PATIENT HAS NOT SHUT HER EYE'S AT ALL THIS SHIFT AND IS GRABBING WRITERS HANDS DURING CARE, GENTLY. ATIVAN IS GIVEN FOR ANXIETY.
--- NOTE | 2020-10-30 03:02 | NUR ---
Comfort: Patient has had good effect from ativan, resting in bed with eye's closed. Gandhi cath is placed for comfort. Patient can not tolerate HOB down for brief change. Patient slept through gandhi insertion.
[2020-10-30 03:20] LABS: Source, Urine Catheter
[2020-10-30 03:22] LABS: Appearance, Urine Clear (Clear); Bilirubin, Urine Neg (Neg); Blood, Urine 1+ (Neg); Color, Urine Yellow (P-Yellow); Glucose Qualitative, Urine Neg (Neg); Ketones, Urine Neg (Neg); Leukocyte Esterase, Urine Neg (Neg); Nitrite, Urine Neg (Neg); Protein, Urine 1+ (Neg); Urobilinogen, Urine NORM (Normal)
[2020-10-30 03:29] LABS: Bacteria Mod /hpf; Red Blood Cells, Urine 0-2 /hpf (0-2); Squamous Epithelial Cells Not Seen /hpf (Few); White Blood Cells, Urine 0-2 /hpf (0-5)
[2020-10-30 03:30] LABS: Yeast/Fungi Urine Many /hpf
--- NOTE | 2020-10-30 05:23 | NUR ---
SHIFT SUMMARY: PATIENT CONTINUEA TO HAVE GOOD EFFECT FROM ATIVAN. SLEEPING AT THIS TIME WITH RESPIRATIONS EASY AT 12. MCKEON CATH HAS PUT OUT 900ML OF URINE. IV NUTRITIAN IS COMPLETED AND IV SITE IS SL. NO S/S OF PAIN OR DISCOMFORT.
--- NOTE | 2020-10-30 13:52 | NUR ---
10/30/20- Called and spoke with . reports that prior to coming into the hospital, her provided 100% of pt's care in the home. They did have home health services through [email or web address]. Patient lives with her in the home. There are stairs in the home and 1 step outside onto the deck. reports that pt did not use the stairs at all . Pt did not drive prior to coming into the hospital and took her to her appts. Pt does not have POA and her PCP is George. Pt's [facility]. did ask care questions, encouraged him to write down all his questions and concerns so he can discuss them with the hospice nurse. asked about the wound on her tailbone that they were going to the wound care center. Encouraged him to bring this up when the pt goes home and to also ask the floor nurse to show him how they are caring for this wound prior to her going home. acknowledged understanding. reports that equipment will be delivered to the home tomorrow through [employer]. -joaquín
--- NOTE | 2020-10-30 14:22 | NUR ---
COMFORT CARE VISIT - Pt's mentation and s/s unchanged. Reviewed EMR and spoke with pt's RN re: medications and s/s t/o noc. Pt had an episode of emesis during noc shift. MD arrived for rounding. VO obtained and entered for RI phenergan in case pt loses IV site. Case conf with [facility] and Theresa of [facility]. Copy of fully completed POLST sent to medical records and placed on chart. Original is in d/c packet. Plan is for d/c to home with [facility] intake on Wednesday. DME arriving tomorrow and has been in communication by phone with [facility] and [facility]. Waiting for him to come in to answer his questions re: wound care. I have verified with [facility] hosp[facility] that they will complete wound care to manage drainage and odor. There is no expectation that wound will heal due to lack of nutritional intake. will not be expected to manage pt's wound per [facility]. They will leave dressing supplies in the home for him in case he needs to reinforce a dressing that becomes saturated.
--- NOTE | 2020-10-30 15:35 | NUR ---
Second Comfort Care visit made while visiting. I discussed goals of wound care to contain drainage and odor but that we did not have an expectation that wound would heal with little to no fluid/nutritional intake. This is difficult information to process. I confirmed with [facility] that they would perform wound dressing changes during their visits. Per 's request I called the [facility] wound clinic and cancelled pt's appointments there. Pt remains awake but is making much less eye contact today. She is mostly looking upward. Urine output is decreasing and darker in color in gandhi drainage bag. Pt's skin is warm and dry. She appears very frail with sternum and rib outline protrusions very visible due to severe cachexia. Pt's energy appears to be less each day. verbalizes "surprise" at her rapid decline starting last week before admission, although pt's severe weight loss has occured over the past 6 months. Self care, rest and reaching out to hospice resources encouraged. Time spent educating on ongoing s/s of decline to expect, especially with minimal PO intake. Oral care instructed and attempted but pt clamps mouth shut tightly to prevent. Small sample of thicket provided to in case pt is awake/alert enough to accept spoonfuls of pureed or thickened intake. verbalizes understanding of only offering food if pt is awake, alert, upright and receptive.
--- NOTE | 2020-10-30 17:04 | NUR ---
SHIFT SUMMARY NO ACUTE EVENTS THIS SHIFT. PT SLEPT FOR FIRST PART OF SHIFT, AWAKENED AND WAS ABLE TO LOOK AROUND ROOM AND AT NURSING STAFF AROUND MID-SHIFT. PT WAS RESPOSITIONED BY NURSING STAFF T/O SHIFT, ORAL CARE PROVIDED WELL. PT IS INCONTINENT, BRIEFS CHECKED AND CHANGED T/O SHIFT. NO SIGNS OF ACUTE DISTRESS. PT'S VISITED THIS AFTERNOON, EDUCATION REGARDING ORAL CARE PROVIDED TO PT'S BY THIS RN.
--- NOTE | 2020-10-31 05:07 | NUR ---
SHIFT SUMMARY PT REMAINS NONVERBAL. OPENS EYES AND PULLS ARMS INWARD WITH REPOSITIONING. PT ALSO DISLIKES ORAL CARE AND PULLS AWAY. OTHERWISE PT JUST RESTS IN BED. NO NONVERBAL S/S OF PAIN. PT AWAKE OFF AND ON THROUGHOUT THE NIGHT. DRESSING TO SACRUM REMAINED C/D/I. REPOSITIONED PT NEEDED. MCKEON CATHETER PATENT AND DRAINING. NO ACUTE CHANGES THIS EVENING. NO FAMILY AT BEDSIDE THIS SHIFT. WILL CONTINUE TO MONITOR AND REPORT TO DAY RN.
--- NOTE | 2020-10-31 11:09 | NUR ---
10/31/20- DR. THAKKAR SIGNED HOSPICE ORDERS AND THEY WERE FAXED TO [facility]. PT TO DISCHARGE TOMORROW MORNING.-ROCIO
--- NOTE | 2020-10-31 17:05 | NUR ---
SHIFT SUMMARY PATIENT IS ON COMFORT CARE MEASURES. PATIENT SLEEPING WITH MINIMAL RESPONSE, EVEN WITH REPOSITIONING, UNTIL AROUND 1400. PATIENT WOKE AT 1400 AND WILL MAKE EYE CONTACT. PATIENT IS NON-VERBAL. PATIENT'S SPOUSE AND FAMILY FRIEND ALTERNATED IN THE ROOM THROUGH THE AFTERNOON. PATIENT REPOSITIONED REGULARLY THROUGHOUT THIS SHIFT. PATIENT CURRENTLY RESTING IN BED.
--- NOTE | 2020-11-01 04:58 | NUR ---
SHIFT SUMMARY PT SLEPT MUCH OF THE NIGHT. WOKE EARLY THIS AM AND WAS WIDE AWAKE BUT THEN EVENTUALLY GOT TIRED AGAIN AND IS SLEEPING. FLOPPED LEGS OUT OF BED SEVERAL TIMES. CONTINUED TO BE NONVERBAL. NO NONVERBAL S/S OF PAIN. REFUSED ORAL CARE. DRESSING TO WOUND ON SACRAM REMAINED C/D/I. NO ACUTE CHANGES THIS SHIFT. WILL CONTINUE TO MONITOR.
[2020-11-01] MEDS ORDERED: ACET120S PR (09:13)
[2020-11-01] MEDS ORDERED: ATROPINE SULFATE2 M1 SL (09:15)
[2020-11-01] MEDS ORDERED: LORA1 PO (09:16)
[2020-11-01] MEDS ORDERED: MORP20L SL (09:18)
--- NOTE | 2020-11-01 09:36 | NUR ---
11/01/20- per chart review, pt is still in ICU, unresponsive to stimuli and sedated and intubated. Pt is receiving tube feedings at this time. No d/c plan at this time. Spoke with and updated on d/c plan, he will come into the hospital to go over discharge instructions with floor nurse. Ani with [facility] has also been updated on time of discharge. -joaquín
[2020-11-01] MEDS ORDERED: PROM12.5S PR (10:11)
[2020-11-01] MEDS ORDERED: TRANSDERM-SCOP1 EAC1 TD (10:12)
--- NOTE | 2020-11-01 12:31 | NUR ---
11/01/20- SPOKE WITH AND UPDATED ON D/C PLAN, HE WILL COME INTO THE HOSPITAL TO GO OVER DISCHARGE INSTRUCTIONS WITH FLOOR NURSE. ROMELIA WITH [facility] HAS ALSO BEEN UPDATED ON TIME OF DISCHARGE. -ROCIO
--- NOTE | 2020-11-01 12:52 | NUR ---
DISCHARGE SUMMARY PATIENT DISCHARGED HOME ON HOSPICE. PATIENT REMAINS NONVERBAL WITH LITTLE RESPONSE. PATIENT'S SPOUSE IN THE ROOM THROUGHOUT THE MORNING. IV REMOVED AND PATIENT CHANGED PRIOR TO DISCHARGE. PATIENT HOME VIA GURNEY AMBULANCE. PATIENT'S RECEIVED DISCHARGE INFORMATION. STATES HOSPICE PLANS IN PLACE FOR FIRST VISIT THIS AFTERNOON.
== END 2020-11-01 12:02 | disposition hospice, home (50) | DRG 640 ==
LOC: ER 16:43 → MEDS 19:25
PROVIDERS: Emergency Medicine; Internal Medicine; ADMIT Internal Medicine
DX: E87.0 Hyperosmolality and hypernatremia (principal); G93.41 Metabolic encephalopathy; E43 Unspecified severe protein-calorie malnutrition; N39.0 Urinary tract infection, site not specified; Z68.1 Body mass index [BMI] 19.9 or less, adult; Z66 Do not resuscitate; Z51.5 Encounter for palliative care; R62.7 Adult failure to thrive; E05.90 Thyrotoxicosis, unspecified without thyrotoxic crisis or storm; G31.09 Other frontotemporal neurocognitive disorder; E86.0 Dehydration; E87.8 Other disorders of electrolyte and fluid balance, not elsewhere classified; B96.1 Klebsiella pneumoniae [K. pneumoniae] as the cause of diseases classified elsewhere; E87.6 Hypokalemia; F02.80 Dementia in other diseases classified elsewhere, unspecified severity, without behavioral disturbance, psychotic disturbance, mood disturbance, and anxiety; E03.9 Hypothyroidism, unspecified; Z86.711 Personal history of pulmonary embolism; Z86.718 Personal history of other venous thrombosis and embolism; Z87.01 Personal history of pneumonia (recurrent); Z98.890 Other specified postprocedural states; Z79.01 Long term (current) use of anticoagulants; Z79.899 Other long term (current) drug therapy
CPT/HCPCS: 36415; 51701; 71045; 80047; 80048; 80053; 81001; 82140; 82947; 83605; 84436; 84439; 84443; 85014; 85025; 87040; 87077; 87086; 87106; 87186; 92526; 92610; 96365-59; 96366-59; 99285-25; A9270; J0696; J1650; J2405; J3480; J7030; J7050; J7070